=== PATIENT | female | born 1995 | race Caucasian/White ===

== ENCOUNTER 2016-09-22 20:02 | Emergency (ER) | payer BC ==
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
== END 2016-09-22 21:11 | disposition home or self-care (01) ==
LOC: ER 20:02
DX: S63.501A Unspecified sprain of right wrist, initial encounter (principal); V86.69XA Passenger of other special all-terrain or other off-road motor vehicle injured in nontraffic accident, initial encounter
CPT/HCPCS: 99283